=== PATIENT | female | born 1995 | race Caucasian/White ===

== ENCOUNTER 2017-07-29 07:10 | Inpatient (IN) | payer BC, OTHER ==
[2017-07-29] MEDS ORDERED: LR / Pitocin 40 units/1000 ml 1,000 ML IV PRN (07:59)
[2017-07-29] MEDS ORDERED: Lidocaine 1% (PF) 30 ML VIAL SC PRN (07:59)
[2017-07-29] MEDS ORDERED: Ondansetron HCl/PF 4 MG/2 ML Vial IVP PRN ×3 (07:59→13:35)
[2017-07-29] MEDS ORDERED: Promethazine HCl 25 MG/ML VIAL IM PRN ×2 (07:59→09:11)
[2017-07-29] MEDS ORDERED: Acetaminophen 500 MG TAB PO PRN (07:59)
[2017-07-29] MEDS ORDERED: Ibuprofen 800 MG TAB PO PRN (07:59)
[2017-07-29 08:03] VITALS: BMI 24.2
--- NOTE | 2017-07-29 08:04 | PDOC.LDHP ---
Labor and Delivery H&P Chief complaint: contractions HPI: 21 yo @ 40.2 presents for painful contractions since 3am. Denies LOF. Denies cp, sob, headache, nvdc, changes in vision and epigastric/abd pain outside of contractions. Current gestational age (weeks): 40 Dating criteria: last menstrual period, first trimester ultrasound Grav: 2 Para: 1 Current complications: none Abnormal US findings: Yes (possible enlarged ventricles) Past Medical History: Previous findings of elevated bp without diagnosis of htn Current medications: pre- vitamins Previous surgical history: none Social history: tobacco use (3-4 cigarettes/day), drug use - Physical Exam Vital signs reviewed and normal: yes General: breathing through contractions Heart: RRR Lungs: CTAB Abdomen: NTTP Extremeties: no edema FHT: category 1 [place] contractions every: 3 - Vaginal Exam cm dilated: 7 Effacement: 100% Station: -1 - OB Labs Blood type: O RH: positive Antibody Screen: negative HIV: negative RPR: negative HEPSAg: negative 1 hour GCT: unknown GBS: negative Urine drug screen: positive (cannabinoids) Rubella: immune - Assessment L&D Assessment: term patient in labor - Plan Plan: admit to L&D, anesthesia consult for pain management -: @ 40.2 in active labor. Admit to l&d routine labs anesthesia for pain control cat 1 strip baseline @ 130 with accels contractions every 3 min cervical check 7, 100, -1 <Jose Villarreal - Last Filed: 07/29/17 08:08> <Nela Flores - Last Filed: 07/29/17 10:32> Allergies/Adverse Reactions: Allergies Allergy/AdvReac Type Severity Reaction Status Date / Time Penicillins Allergy Intermediate Hives Verified 02/16/16 03:12 Attending Addendum - Attending Addendum I personally evaluated the patient and discussed the management with Dr. Villarreal I agree with the History, Examination, Assessment and Plan documented above with any addition or exceptions noted below- 21 year old @ 40.2 weeks presented c/o ctx since 3AM; no LOF or VB. (+) FM. On exam afebrile vss SVE 7/C/ +1; category 1 FHTs. A/P: IUP @ 40.2 weeks- plan for epidural for pain control; anticipate soon. <Nela Flores - Last Filed: 07/29/17 10:32>
[2017-07-29 08:36] LABS: Hemoglobin 11.1 g/dL (12.0-16.0); Mean Corpuscular HGB CONC 32.5 g/dL (32.0-36.0); Mean Corpuscular Volume 85.9 fl (81.0-99.0); Mean Platelet Volume 7.9 fL (7.4-10.4); Platelet Count 395 thou/uL (130-400); RBC Distribution Width 14.8 % (11.5-14.5); Red Blood Cell (RBC) Count 3.97 mill/uL (4.20-5.40); White Blood Cell (WBC) Count 17.1 thou/uL (4.8-10.8)
[2017-07-29] MEDS: Lactated Ringer's 1,000 ML IV SCH ×2 (09:10→22:38)
[2017-07-29] MEDS ORDERED: diphenhydrAMINE 50 MG/ML VIAL IVP PRN (09:11)
[2017-07-29] MEDS ORDERED: Lactated Ringer's 500 ML IV PRN (09:11)
[2017-07-29] MEDS ORDERED: Naloxone HCl 0.4 mg/ml Vial IVP PRN ×2 (09:11)
[2017-07-29] MEDS ORDERED: ePHEDrine/0.9% NaCl/PF SYRINGE 50 mg/10 ml SLOW IVP PRN (09:11)
[2017-07-29] MEDS ORDERED: Eucerin (Mineral Oil/Petrolatum,White) 30 gm Jar TOP PRN (09:11)
[2017-07-29] MEDS ORDERED: Acetaminophen 325 MG TAB PO PRN (09:11)
[2017-07-29] MEDS: Bupivacaine 0.5% 20 ML, Fentanyl 400 MCG in Sodium Chloride 0.9% 72 ML EPIDURAL SCH ×2 (09:12→09:15)
[2017-07-29] MEDS ORDERED: Fentanyl 4mcg/Marcaine 0.1% Cassette 100 ML EPIDURAL SCH (09:15)
[2017-07-29] MEDS ORDERED: Communication Order-Pharmacy FS SCH (09:15)
[2017-07-29 09:16] LABS: HBSAg Index 0.15 S/CO (0-0.99); Hep B Surf Ag Non-Reactive S/CO (NonReactive); Syphilis Antibody Nonreactive (Nonreactive); Syphilis Antibody Index 0.02 S/CO (<1.00 Non-Reactive)
[2017-07-29 10:05] LABS: Amphetamine Detected (NotDetected); Barbiturates Screen Not Detected (NotDetected); Benzodiazepine Screen Not Detected (NotDetected); Cocaine Metabolite Screen Not Detected (NotDetected); Medtox Control Line Valid? VALID (VALID); Medtox Reader # READER 1; Methadone Not Detected (NotDetected); Methamphetamine Detected (NotDetected); Opiate Screen Not Detected (NotDetected); Oxycodone Screen Not Detected (NotDetected); Phencyclidine (PCP) Not Detected (NotDetected); THC/Cannabinoid Screen Detected (NotDetected); Tricyclic Screen Not Detected (NotDetected)
[2017-07-29] MEDS: LR / Pitocin 40 units/1000 ml 1,000 ML IV SCH ×2 (11:29→12:56)
[2017-07-29] MEDS ORDERED: Milk Of Magnesia 30 ML UDCUP PO PRN ×2 (11:38→13:35)
[2017-07-29] MEDS ORDERED: Adacel (T-DAP) 0.5 ML VIAL IM ONE (11:38)
[2017-07-29] MEDS ORDERED: Bisacodyl 10 MG SUPP PR PRN ×2 (11:38→13:35)
--- NOTE | 2017-07-29 11:45 | PDOC.OPDEL ---
OB Operative/Delivery Note Delivery Dr/Surgeon: Phil/Martina Assist: Martina/Sandra Pre-Delivery Diagnosis: active labor Procedure/Post Delivery Dx: spontaneous vaginal delivery Weeks gestation: 40 (+2) Anesthesia: epidural - Additional Findings/Plan Placenta delivered: spontaneous Repaired Obstetrical Laceration: none Estimated blood loss: 200 Compilations/Other Findings: Delivery Note: This is 21 yo F G 2P 2002 @ 40+2 wks who delivered a viable F infant at 1123 07/29/2017. Following an uneventful antepartum course, a vigorous female was delivered over an intact perineum in the OA position. Anterior Shoulder and then remainder of the body delivered. No nuchal cord. The head was held down and mouth was bulb suctioned. Cord clamped and cut and cord blood collected. Placenta delivered intact with a 3 vessel cord noted. Fundal massage was performed and the fundus was firm. The cervix and vagina were inspected and found to be free of lacerations. Infant went to nursery in good condition for routine care. Apgars were 9/9 at 1 & 5 minutes, respectively. Patient tolerated delivery well and went to after routine recovery/ care. Post delivery plan: routine recovery <Jose Villarreal - Last Filed: 07/29/17 11:40> Attending Addendum - Attending Addendum I was present and supervised throughout the of a viable female infant over an intact perineum. Apgars 9/9. Placenta delivered spontaneously and intact; 3V cord. No lacerations/episiotomy. Infant and mother in stable condition. Residents: Frank. <Nela Flores - Last Filed: 07/29/17 12:07>
[2017-07-29] MEDS ORDERED: LR / Pitocin 40 units/1000 ml 1,000 ML IV SCH (13:45)
[2017-07-29] MEDS: Ibuprofen 800 MG TAB PO SCH ×2 (15:22→22:38)
[2017-07-29] MEDS ORDERED: Ferrous Sulfate 325 MG TAB PO SCH (17:00)
[2017-07-29] MEDS: Ferrous Sulfate 325 MG TAB PO SCH (19:18)
[2017-07-29] MEDS ORDERED: Docusate Calcium (SURFAK) 240 MG CAP PO SCH (21:00)
[2017-07-29] MEDS: Docusate Calcium (SURFAK) 240 MG CAP PO SCH (22:38)
[2017-07-30] MEDS: Ibuprofen 800 MG TAB PO SCH ×5 (05:48→23:50)
[2017-07-30 06:18] LABS: Hemoglobin 10.1 g/dL (12.0-16.0); Mean Corpuscular HGB CONC 33.3 g/dL (32.0-36.0); Mean Corpuscular Hemoglobin 28.8 pg (27.0-31.0); Mean Corpuscular Volume 86.5 fl (81.0-99.0); Mean Platelet Volume 8.3 fL (7.4-10.4); Platelet Count 341 thou/uL (130-400); RBC Distribution Width 14.8 % (11.5-14.5); Red Blood Cell (RBC) Count 3.49 mill/uL (4.20-5.40); White Blood Cell (WBC) Count 15.4 thou/uL (4.8-10.8)
--- NOTE | 2017-07-30 07:29 | PDOC.PP ---
Post Progress Note Post Day #: 1 Subjective: Endorse, walking, urinating, tolerating PO intake, pain under control, minimal lochia. She is breast feeding and pumping. Has not had BM yet. PO intake tolerated: yes Flatus: yes Ambulation: yes Vital Signs (12 hours) Temp Pulse Resp 07/30/17 04:00 97.8 F 79 20 07/30/17 00:00 97.8 F 79 20 07/29/17 20:00 97.8 F 79 20 Weight Weight 68.039 kg - Physical Examination General: NAD Cardiovascular: no m/r/g, RRR Respiratory: clear to auscultation bilaterally Abdominal: + bowel sounds, lochia, appropriately TTP Extremities: negative homans (B) Neurological: no gross focal deficits Psychiatric: A&Ox3, normal affect Result Diagrams: 07/30/17 05:20 Additional Labs: Post Labs Hep Bs Antigen Non-Reactive S/CO (NonReactive) 07/29/17 08:12 (1) Polysubstance abuse Code(s): F19.10 - OTHER PSYCHOACTIVE SUBSTANCE ABUSE, UNCOMPLICATED Status: Acute Comment: 1. Maternal UDS positive for cannaboids and amphetamine. Plan, mec screen for . Consult CM. No sign of intoxication or withdrawal at this time. (2) Status post vaginal delivery Status: Acute Comment: Tolerated delivery well without laceration and minimal blood loss. Plan, continue routine care. Pain medication as needed. consult for patient. <Garrett Mack - Last Filed: 07/30/17 07:27> Vital Signs (12 hours) Temp Pulse Resp BP Pulse Ox 07/31/17 08:00 97.6 F 86 16 07/31/17 07:56 97.6 F 86 16 121/64 95 Weight Weight 68.039 kg Result Diagrams: 07/30/17 05:20 Additional Labs: Post Labs Hep Bs Antigen Non-Reactive S/CO (NonReactive) 07/29/17 08:12 <Nela Flores - Last Filed: 07/31/17 12:46> Attending Addendum - Attending Addendum Date/Time: 07/31/17 7692 I personally evaluated the patient and discussed the management with Dr. Mack on I agree with the History, Examination, Assessment and Plan documented above with any addition or exceptions noted below- Patient without complaints. Pain controlled. Afebrile VSS. A/P: 1) PPD#1 s/p - continue routine care. <Nela Flores - Last Filed: 07/31/17 12:46>
[2017-07-30] MEDS: Ferrous Sulfate 325 MG TAB PO SCH ×2 (08:35→17:01)
[2017-07-30] MEDS: Prenatal Vitamin 1 TAB PO SCH (08:35)
[2017-07-30] MEDS: Docusate Calcium (SURFAK) 240 MG CAP PO SCH ×2 (08:35→23:49)
[2017-07-30] MEDS ORDERED: FLU VACC QS2017-18 36 mo. & older 0.5 ML SYRINGE IM ONE (12:00)
[2017-07-30] MEDS: Lactated Ringer's 1,000 ML IV SCH (17:01)
[2017-07-31] MEDS: Lactated Ringer's 1,000 ML IV SCH ×3 (01:35→09:49)
[2017-07-31] MEDS: Ibuprofen 800 MG TAB PO SCH ×2 (06:14→14:16)
--- NOTE | 2017-07-31 08:04 | PDOC.PP ---
Post Progress Note Post Day #: 2 Subjective: Doing well. Has a bit of a sore throat this morning, but denies fever, neck pain , productive cough. PO intake tolerated: yes Flatus: yes Ambulation: yes Vital Signs (12 hours) Temp Pulse Resp BP Pulse Ox 07/31/17 07:56 97.6 F 86 16 121/64 95 Weight Weight 68.039 kg - Physical Examination General: NAD Cardiovascular: no m/r/g, RRR Respiratory: clear to auscultation bilaterally Abdominal: + bowel sounds, lochia, no distention, appropriately TTP Fundus firm & at: 3 inch below umbilicus Extremities: negative homans (B) Neurological: no gross focal deficits Psychiatric: A&Ox3 Result Diagrams: 07/30/17 05:20 Additional Labs: Post Labs Hep Bs Antigen Non-Reactive S/CO (NonReactive) 07/29/17 08:12 (1) Polysubstance abuse Code(s): F19.10 - OTHER PSYCHOACTIVE SUBSTANCE ABUSE, UNCOMPLICATED Status: Acute Comment: 1. Maternal UDS positive for cannaboids and amphetamine. Plan, [facility] screen for infant. Consult CM. No sign of intoxication or withdrawal at this time. Confirmatory test pending. CPS to see mother today. Will make dispo after CPS sees them. (2) Status post vaginal delivery Status: Acute Comment: Tolerated delivery well without laceration and minimal blood loss. Plan, continue routine care. Pain medication as needed. consult for patient. Will be ok for discharge today, patient express understanding she will follow up in 2 week as outpatient for check. She is unsure on contraceptive method at this time. She endorse that she will breast pump at this time if baby is seperated from her. <Garrett Mack M - Last Filed: 07/31/17 08:02> Vital Signs (12 hours) Temp Pulse Resp BP Pulse Ox 07/31/17 08:00 97.6 F 86 16 07/31/17 07:56 97.6 F 86 16 121/64 95 Weight Weight 68.039 kg Result Diagrams: 07/30/17 05:20 Additional Labs: Post Labs Hep Bs Antigen Non-Reactive S/CO (NonReactive) 07/29/17 08:12 <Nela Flores - Last Filed: 07/31/17 12:48> Attending Addendum - Attending Addendum Date/Time: 07/31/17 [id number] I personally evaluated the patient and discussed the management with Dr. Mack I agree with the History, Examination, Assessment and Plan documented above with any addition or exceptions noted below- Patient without complaints. Pain controlled. Afebrile VSS. A/P: 1) PPD#2 s/p - Plan to d/c home today. F/U in 6 weeks for visit. 2) (+) UDS- encourage cessation of marijuana; confirmatory urine toxicology sent to validate positive screen for meth/ amphetamines <Nela Flores - Last Filed: 07/31/17 12:48>
[2017-07-31] MEDS: Docusate Calcium (SURFAK) 240 MG CAP PO SCH (09:16)
[2017-07-31] MEDS: Ferrous Sulfate 325 MG TAB PO SCH (09:16)
[2017-07-31] MEDS: Prenatal Vitamin 1 TAB PO SCH (09:16)
[2017-07-31 11:54] LABS: Reference Lab Name LABCORP
[2017-07-31 13:32] VITALS: BP 114/70; TEMP 98.3
== END 2017-07-31 14:55 | disposition home or self-care (01) | DRG 775 ==
LOC: L&D/OP 07:10 → L&D 07:49 → 3SW 13:48
PROVIDERS: ADMIT Family Medicine; ATTEND Family Medicine
PROC: 10E0XZZ Delivery of Products of Conception, External Approach (ICD-10-PCS; principal; 2017-07-29)
DX: O48.0 Post-term pregnancy (principal); O99.324 Drug use complicating childbirth; F12.90 Cannabis use, unspecified, uncomplicated; F15.90 Other stimulant use, unspecified, uncomplicated; Z3A.40 40 weeks gestation of pregnancy; Z37.0 Single live birth
CPT/HCPCS: 36415; 51702; 80306; 85027; 86780; 87340; 90715; 99285; J2405; J3010; J3490; J7050

== ENCOUNTER 2025-05-07 18:58 | Emergency (ER) | payer MEDICAID ==
[~2025-05-07 18:58] MED LIST: Iopamidol 370 76% 100 ML VIAL ONE
[2025-05-07] MEDS ORDERED: Ondansetron PF 4 MG/2 ML Vial ONE (19:50)
[2025-05-07 19:54] LABS: #Basophils 0.07 10x3/uL (0.0-0.2); #Eosinophils 0.53 10x3/uL (0.0-0.7); #Monocytes 1.05 10x3/uL (0.11-0.59); #Neutrophils 6.68 10x3/uL (1.40-6.50); %Basophils 0.6 % (0.0-1.0); %Eosinophils 4.8 % (0.0-10.0); %Lymphocytes 25.0 % (21.0-51.0); %Monocytes 9.4 % (0.0-10.0); %Neutrophils 59.9 % (42.0-75.0); Hematocrit 39.3 % (36.0-47.0); Hemoglobin 12.7 g/dL (12.0-16.0); Mean Corpuscular Hemoglobin 30.0 pg (27.0-31.0); Mean Corpuscular Volume 92.7 fL (78.0-98.0); Platelet Count 372 10x3/uL (130-400); Red Blood Cell (RBC) Count 4.24 mill/uL (4.20-5.40); White Blood Cell (WBC) Count 11.15 10x3/uL (4.8-10.8)
[2025-05-07 20:09] LABS: INR-International Normal Ratio 1.0; PTT 28.1 sec (22.9-36.1); Prothrombin Time 13.3 sec (12.0-14.7)
[2025-05-07 20:10] LABS: ALT (SGPT) 15 U/L (Less than 34); AST (SGOT) 19 U/L (11-34); Albumin 3.9 g/dL (3.1-4.5); Alkaline Phosphatase 78 U/L (40-110); Anion Gap 13 mmol/L (10-20); BUN (Urea Nitrogen) 10 mg/dL (7.0-18.7); Bilirubin, Total 0.3 mg/dL (0.3-1.2); Calc. Creatinine Clearance 0 mL/min (70-130); Calcium 9.3 mg/dL (7.8-10.44); Carbon Dioxide 23 mmol/L (22-29); Chloride 106 mmol/L (98-107); Globulin 2.5 g/dL (2.4-3.5); Glucose 83 mg/dL (70-105); Lipase 10 U/L (8-78); Potassium 3.4 mmol/L (3.5-5.1); Sodium 139 mmol/L (136-145)
[2025-05-07 20:15] LABS: Bacteria/HPF None Seen HPF (None Seen); CAUTI Indications for Culture Pelvic or flank pain; Glucose, Urine (Dipstick) Normal (Negative); Leukocyte Negative Leu/uL (Negative); Protein, Urine (Dipstick) 20 mg/dL (Neg-Trace); RBC/HPF 0-3 HPF (0-3); Specific Gravity, Urine 1.039 (1.002-1.036); WBC/HPF 0-3 HPF (0-3)
[2025-05-07 20:16] LABS: Urine Culture Reflex No No
[2025-05-07 20:29] LABS: BHCG - Serum Negative (NEGATIVE); Pregs Control Background? CLEAR/WHITE (CLR/WHITE); Pregs Control Bar Appear? YES (CONTROL BAR)
== END 2025-05-07 21:52 | disposition home or self-care (01) ==
LOC: ERS 18:58
DX: R10.13 Epigastric pain (principal); R11.2 Nausea with vomiting, unspecified; F12.90 Cannabis use, unspecified, uncomplicated
CPT/HCPCS: 74177; 80053; 81001; 83690; 84484; 84703; 85025; 85610; 85730; 93005; 96374; 96375; J2405; Q9967